=== PATIENT | male | born 1990 ===

== ENCOUNTER 2021-05-27 17:25 | Emergency (ER) | payer BC ==
[~2021-05-27] VITALS: Ht 175.3 cm; Wt 106.6 kg
[~2021-05-27 17:25] MED LIST: AMAN100; AMOCLA875 PO; AMPDEX15CR PO; ASPI81CH PO; BUPR150ER PO; BUPR75 PO; CEPH500 PO; CLON.2 PO; CYCL10 PO; DULO60; HYDACE5 PO; LAMO5 PO; LOSA50; METCAR500; ONDA4ODT MM; OXYACE5T PO; Ondansetron Odt8 MG PO; PRAZ2 PO; PROM25 PO; PROP120ER; Percocet 5-3251 EACH PO; QUET300 PO; RANI150 PO; SUMA25; TRAZ50 PO; ZOLM5ODT MM; Zofran Odt4 MG SL
== END 2021-05-27 20:07 | disposition home or self-care (01) ==
LOC: ER 17:25
DX: S61.032A Puncture wound without foreign body of left thumb without damage to nail, initial encounter (principal); Z79.899 Other long term (current) drug therapy; W27.8XXA Contact with other nonpowered hand tool, initial encounter
CPT/HCPCS: 64450; 73140; 99283-25